=== PATIENT | female | born 1970 | race African-American/Black ===

== ENCOUNTER 2020-12-17 10:26 | Emergency (ER) | payer BC ==
[2020-12-17 10:47] VITALS: BMI 38.2
[2020-12-17] MEDS ORDERED: SODIUM CHLORIDE 0.9% 500 ML INFUS.BAG IV ONE (11:55)
[2020-12-17] MEDS ORDERED: ACETAMINOPHEN 1000 MG/100 ML VIAL (NON FORMULARY) IVPB ONE (11:59)
[2020-12-17] MEDS ORDERED: ONDANSETRON 4 MG/2 ML VIAL IVPUSH ONE (12:02)
[2020-12-17] MEDS ORDERED: ACETAMINOPHEN INJECTION 100 ML IVPB ONE (12:11)
[2020-12-17] MEDS ORDERED: ONDANSETRON 4 MG/2 ML VIAL ONE (12:11)
[2020-12-17] MEDS ORDERED: LACTATED RINGERS SOLUTION 1000 ML INFUS.BAG IV ONE (12:36)
[2020-12-17 12:48] LABS: VENOUS BASE EXCESS 2.9 mmol/L (-2-2); VENOUS O2 SATURATION 70.4 % (70-80); VENOUS PCO2 49.9 mmHg (38-52); VENOUS PH 7.38 (7.310-7.410)
[2020-12-17 12:50] LABS: EOS % 2.2 % (0-4.5); HEMATOCRIT 37.2 % (32.4-45.2); HEMOGLOBIN 12.3 GM/dL (10.7-15.3); LYMPH % 38.6 % (8-40); MCH 30.9 pg (25.7-33.7); MCHC 33.2 g/dl (32.0-36.0); MEAN CELL VOLUME 92.9 fl (80-96); MEAN PLT VOLUME 8.8 fl (7.5-11.1); MONO % 4.5 % (3.8-10.2); NEUT % 53.7 % (42.8-82.8); PLATELET COUNT 341 K/MM3 (134-434); RDW 13.3 % (11.6-15.6); WHITE BLOOD COUNT 5.4 K/mm3 (4.0-10.0)
[2020-12-17 12:53] LABS: URINE APPEARANCE CLEAR; URINE BILIRUBIN NEGATIVE (NEGATIVE); URINE COLOR YELLOW; URINE GLUCOSE (UA) 3+ (NEGATIVE); URINE KETONE NEGATIVE (NEGATIVE); URINE LEUK ESTERASE NEGATIVE (NEGATIVE); URINE NITRITE NEGATIVE (NEGATIVE); URINE PROTEIN NEGATIVE (NEGATIVE); URINE UROBILINOGEN 0.2 mg/dL (0.2-1.0)
[2020-12-17 13:12] LABS: CHLORIDE 102 mmol/L (98-107); POTASSIUM 4.1 mmol/L (3.5-5.1); SODIUM 136 mmol/L (136-145)
[2020-12-17 13:13] LABS: ALBUMIN 3.5 g/dl (3.4-5.0); CALCIUM 9.4 mg/dL (8.5-10.1)
[2020-12-17 13:14] LABS: ANION GAP 4 MMOL/L (8-16); BLOOD UREA NITROGEN 13.9 mg/dL (7-18); CO2 30 mmol/L (21-32); GLUCOSE,RANDOM 237 mg/dL (74-106)
[2020-12-17 13:17] LABS: CREATININE 0.8 mg/dL (0.55-1.3); SGOT/AST 8 U/L (15-37); SGPT/ALT 21 U/L (13-61)
[2020-12-17 13:18] LABS: TOT PROT 7.5 g/dl (6.4-8.2)
[2020-12-17 13:19] LABS: ALK PHOS 103 U/L (45-117)
[2020-12-17 13:21] LABS: BILIRUBIN,TOTAL 0.3 mg/dL (0.2-1)
[2020-12-17] MEDS ORDERED: KETOROLAC TROMETHAMINE 30 MG/1 ML VIAL IVPUSH ONE (13:23)
[2020-12-17] MEDS ORDERED: KETOROLAC TROMETHAMINE 30 MG/1 ML VIAL ONE (13:28)
[2020-12-17 14:18] VITALS: BP 138/80; PULSE 80; TEMP 98.9
== END 2020-12-17 14:18 | disposition home or self-care (01) ==
LOC: JER 10:26
PROC: 3E0333Z Introduction of Anti-inflammatory into Peripheral Vein, Percutaneous Approach (ICD-10-PCS; principal; 2020-12-17)
PROC: 3E0333Z Introduction of Anti-inflammatory into Peripheral Vein, Percutaneous Approach (ICD-10-PCS; 2020-12-17)
PROC: 3E033GC Introduction of Other Therapeutic Substance into Peripheral Vein, Percutaneous Approach (ICD-10-PCS; 2020-12-17)
DX: R73.9 Hyperglycemia, unspecified (principal); R53.1 Weakness
CPT/HCPCS: 36415; 80053; 81003; 82010; 82550; 82803; 82962; 84484; 85025; 87086; 93005; 93010; 99284-25; C9803; J0131; U0003

== ENCOUNTER 2021-05-06 16:19 | Emergency (ER) | payer BC ==
[2021-05-06 16:33] VITALS: BMI 41.1
[2021-05-06] MEDS ORDERED: KETOROLAC TROMETHAMINE 60 MG/2 ML VIAL IM ONE (17:16)
[2021-05-06] MEDS ORDERED: KETOROLAC TROMETHAMINE 60 MG/2 ML VIAL ONE (17:27)
[2021-05-06 20:15] VITALS: TEMP 98.7
[2021-05-07 03:10] VITALS: BP 158/89; PULSE 78
== END 2021-05-07 03:31 | disposition short-term general hospital (02) ==
LOC: JER 16:19 → JERFT 16:19 → JER 05-07 03:31
PROC: 3E0233Z Introduction of Anti-inflammatory into Muscle, Percutaneous Approach (ICD-10-PCS; principal; 2021-05-06)
DX: S09.93XA Unspecified injury of face, initial encounter (principal); S02.40EA Zygomatic fracture, right side, initial encounter for closed fracture
CPT/HCPCS: 70450-TC; 70486-TC; 99284-25

== ENCOUNTER 2021-11-22 11:17 | Emergency (ER) | payer BC ==
[2021-11-22 11:23] VITALS: BP 138/92; PULSE 77; TEMP 98.1; BMI 40.0
[2021-11-22] MEDS ORDERED: ACETAMINOPHEN 1000 MG/100 ML BAG IVPB ONE (12:43)
[2021-11-22] MEDS ORDERED: SODIUM CHLORIDE 1,000 ML IV STA (12:43)
[2021-11-22] MEDS ORDERED: CYCLOBENZAPRINE HCL 10 MG TABLET (FP) PO ONE (12:43)
[2021-11-22] MEDS ORDERED: KETOROLAC TROMETHAMINE 60 MG/2 ML VIAL IVPUSH ONE (12:43)
[2021-11-22 13:08] LABS: BASO % 1.2 % (0-2.0); EOS % 3.8 % (0-4.5); HEMATOCRIT 40.3 % (32.4-45.2); HEMOGLOBIN 13.1 GM/dL (10.7-15.3); LYMPH % 34.4 % (8-40); MCH 30.3 pg (25.7-33.7); MCHC 32.5 g/dl (32.0-36.0); MEAN CELL VOLUME 93.3 fl (80-96); MEAN PLT VOLUME 8.8 fl (7.5-11.1); MONO % 4.9 % (3.8-10.2); NEUT % 55.7 % (42.8-82.8); PLATELET COUNT 367 10^3/uL (134-434); RBC 4.32 M/mm3 (3.60-5.2); RDW 13.1 % (11.6-15.6); WHITE BLOOD COUNT 7.3 K/mm3 (4.0-10.0)
[2021-11-22 13:29] LABS: CALCIUM 9.1 mg/dL (8.5-10.1)
[2021-11-22 13:30] LABS: ALBUMIN 3.1 g/dl (3.4-5.0); BLOOD UREA NITROGEN 12.8 mg/dL (7-18)
[2021-11-22 13:33] LABS: CREATININE 0.7 mg/dL (0.55-1.3)
[2021-11-22 13:34] LABS: TOT PROT 7.2 g/dl (6.4-8.2)
[2021-11-22 13:35] LABS: BILIRUBIN,TOTAL 0.5 mg/dL (0.2-1)
[2021-11-22] MEDS ORDERED: KETOROLAC TROMETHAMINE 15 MG/ML VIAL ONE (14:18)
[2021-11-22] MEDS ORDERED: CYCLOBENZAPRINE HCL 10 MG TABLET (FP) ONE (14:18)
[2021-11-22] MEDS ORDERED: ACETAMINOPHEN INJECTION 100 ML IVPB ONE (14:20)
[2021-11-22] MEDS ORDERED: INSULIN (NOVOLOG) ASPART 100 UNITS/ML 10ML VIAL SQ ONE (15:32)
[2021-11-22] MEDS ORDERED: morphine CARPU-JECT 4 MG/1 ML DISP.SYRIN IVPUSH ONE (15:32)
[2021-11-22] MEDS ORDERED: morphine SULFATE 4 MG/ML VIAL ONE (15:44)
== END 2021-11-22 18:09 | disposition home or self-care (01) ==
LOC: JER 11:17
PROC: 3E0333Z Introduction of Anti-inflammatory into Peripheral Vein, Percutaneous Approach (ICD-10-PCS; principal; 2021-11-22)
PROC: 3E0333Z Introduction of Anti-inflammatory into Peripheral Vein, Percutaneous Approach (ICD-10-PCS; 2021-11-22)
PROC: 3E033NZ Introduction of Analgesics, Hypnotics, Sedatives into Peripheral Vein, Percutaneous Approach (ICD-10-PCS; 2021-11-22)
PROC: 3E0337Z Introduction of Electrolytic and Water Balance Substance into Peripheral Vein, Percutaneous Approach (ICD-10-PCS; 2021-11-22)
DX: M79.7 Fibromyalgia (principal); R73.09 Other abnormal glucose
CPT/HCPCS: 36415; 80053; 82962; 85025; 99284-25; C9803; J0131; U0003; U0005

== ENCOUNTER 2022-05-27 07:35 | Emergency (ER) | payer OTHER ==
[2022-05-27 07:50] VITALS: BMI 40.3
[2022-05-27] MEDS ORDERED: ACETAMINOPHEN 500 MG TABLET (FP) PO ONE (08:20)
[2022-05-27] MEDS ORDERED: LIDOCAINE 5% TOPICAL PATCH TP ONE (08:21)
[2022-05-27] MEDS ORDERED: METHOCARBAMOL 750 MG TAB PO ONE (08:21)
[2022-05-27] MEDS ORDERED: LIDOCAINE 5% TOPICAL PATCH ONE (08:41)
[2022-05-27] MEDS ORDERED: ACETAMINOPHEN 325 MG TABLET (FP) ONE (08:41)
[2022-05-27] MEDS ORDERED: METHOCARBAMOL 500 MG TABLET PO ONE (08:45)
[2022-05-27] MEDS ORDERED: METHOCARBAMOL 500 MG TABLET ONE (08:45)
[2022-05-27 11:28] VITALS: BP 150/85; PULSE 81; RESP 16; TEMP 98.6
[2022-05-27] MEDS ORDERED: LIDOCAINE PATCH REMOVAL MC SCH (22:00)
== END 2022-05-27 11:24 | disposition home or self-care (01) ==
LOC: JER 07:35
DX: S09.90XA Unspecified injury of head, initial encounter (principal); Y04.0XXA Assault by unarmed brawl or fight, initial encounter
CPT/HCPCS: 70450-TC; 70486-TC; 72125-TC; 72170-TC-FY; 73030-TC-RT-FY; 73060-TC-RT-FY; 99285-25